=== PATIENT | female | born 1970 | race American Indian/Alaskan Native ===

== ENCOUNTER 2017-05-09 06:47 | Day surgery (SDC) | payer MEDICARE ==
[2017-05-09] MEDS ORDERED: DIPRIVAN 10 MG/ML IV ONE (07:16)
--- NOTE | 2017-05-09 07:39 | Anesthesia Day of Surgery ---
Anesthesia Day of Surgery - Day of Surgery Patient Examined: Yes Patient H&P Reviewed: Yes Patient is NPO: Yes
--- NOTE | 2017-05-09 07:39 | Anesthesia Consultation ---
Anesthesia Consult and Med Hx Date of service: 05/09/17 - Airway Anesthetic Teeth Evaluation: Good ROM Head & Neck: Adequate Mental/Hyoid Distance: Adequate Mallampati Class: Class II Intubation Access Assessment: Probably Good - Pulmonary Exam CTA: Yes - Cardiac Exam Cardiac Exam: RRR - Pre-Operative Health Status ASA Pre-Surgery Classification: ASA2 Proposed Anesthetic Plan: MAC - Pulmonary Hx Asthma: Yes - Cardiovascular System Hx Hypertension: Yes - Endocrine Hx Non-Insulin Dependent Diabetes: No Hx Thyroid Disease: No - Other Systems Hx Obesity: No
[2017-05-09] MEDS ORDERED: LACTATED RINGERS 1,000 ML IV SCH (08:00)
[2017-05-09] MEDS ORDERED: NACL 0.9% 1000 ML 1,000 ML IV SCH (08:00)
--- NOTE | 2017-05-09 10:52 | Post Anesthesia Evaluation ---
- Post Anesthesia Evaluation Patient Participated: Yes Airway Patent: Yes Stable Respiratory Function: Yes Nausea/Vomiting: No Temp > 96.8F: Yes Pain Manageable: Yes Adequeate Hydration: Yes Anesthesia Complications: No Block Receding Appropriately: Not Applicable Patient on Ventilator: No
[2017-05-09 11:08] VITALS: BP 91/65
[2017-05-10] MEDS ORDERED: NACL ONE (10:50)
--- NOTE | 2017-05-10 22:52 | Operative Report ---
ENDOSCOPY REPORT PREOPERATIVE DIAGNOSES: 1. This patient is status post gastric bypass by Dr. Brandon Marie in 2000. 2. Status post revision by myself in 2012. 3. The patient now presents with reflux, epigastric pain, dysphagia, and symptoms of enterogastric reflux. POSTOPERATIVE DIAGNOSES: The patient has a dilatation of the , her anastomosis was 3 mm. She had an enterogastric pouch nodule that was biopsied and she had also demonstrated enterogastric reflux and a failed gastrointestinal anastomosis that resulted in enterogastric reflux. OPERATIVE TECHNIQUE: The patient was placed on the operating table in the dorsal supine position and following satisfactory induction of MAC anesthesia with propofol, the patient was placed in the left lateral decubitus position for operative introduction of the endoscope. The endoscope was then placed into the posterior oropharynx and then placed down into the upper esophagus into the mid esophagus and down to the lower esophageal sphincter. 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 The pouch was described as above, with about a 50 mL volume diameter. She also had a small ulceration at the gastroesophageal junction with a dilated anastomosis at mm with enterogastric reflux which caused the anastomotic ulcer. She had a nodule within the gastric pouch. This nodule was biopsied and sent to the pathologist as surgical specimen. The remaining inspection of the pouch and the GE anastomosis was unremarkable. The gas was suctioned out of the pouch and the small bowel and the procedure was terminated. The patient tolerated the procedure well and was sent to recovery room in a satisfactory condition. JOB# [id number] ALANA/MICHAEL
== END 2017-05-09 06:48 | disposition home or self-care (01) ==
LOC: GIO 06:47
PROVIDERS: ATTEND Specialist
DX: K91.89 Other postprocedural complications and disorders of digestive system (principal); K25.9 Gastric ulcer, unspecified as acute or chronic, without hemorrhage or perforation; K21.9 Gastro-esophageal reflux disease without esophagitis; J45.909 Unspecified asthma, uncomplicated; I10 Essential (primary) hypertension; D50.9 Iron deficiency anemia, unspecified; Z88.8 Allergy status to other drugs, medicaments and biological substances; Z98.890 Other specified postprocedural states; Z91.013 Allergy to seafood; Z91.09 Other allergy status, other than to drugs and biological substances; Y83.8 Other surgical procedures as the cause of abnormal reaction of the patient, or of later complication, without mention of misadventure at the time of the procedure; Z79.899 Other long term (current) drug therapy
CPT/HCPCS: 43239; 82962; 88305; 88342; J2704; J7030